=== PATIENT | male | born 1975 | race American Indian/Alaskan Native ===

== ENCOUNTER 2019-07-06 15:17 | Emergency (ER) | payer SELFPAY ==
[2019-07-06 15:29] VITALS: BP 142/85
--- NOTE | 2019-07-06 17:20 | Emergency Department Report ---
Chief Complaint: Medical Clearance Stated Complaint: NEED GLUCOSE MEDS Time Seen by Provider: 07/06/19 17:11 - HPI History of Present Illness: 43yo M states that he is out of his insulin medication x 3 days. - ROS Review of Systems: All systems reviewed and negative. - Exam Vital Signs: Vitals reviewed. Vital Signs 07/06/19 15:28 Temperature 99.1 F Pulse Rate 95 H Respiratory 16 Rate Blood Pressure 142/85 O2 Sat by Pulse 97 Oximetry Physical Exam: General-WNL HEENT-WNL Neck-WNL Lungs-WNL Heart-WNL Abdomen-WNL MS-WNL Psych-WNL Neuro-WNL MSE screening note: Focused history and physical exam performed. Due to findings the following was ordered: Pt was explained that he is being MSE screened out. His BG was 300. He was instructed to see PCP or urgent care for med refill in 1-3 days, f/u with ER as needed. ED Disposition for MSE Condition: Stable Referrals: PRIMARY CARE [Primary Care Provider] - 3-5 Days
== END 2019-07-06 17:48 | disposition left against medical advice (07) ==
LOC: ED 15:17
DX: E11.9 Type 2 diabetes mellitus without complications (principal); Z76.0 Encounter for issue of repeat prescription; Z79.4 Long term (current) use of insulin
CPT/HCPCS: 82962; 99283